=== PATIENT | female | born 1955 | race Caucasian/White ===

== ENCOUNTER 2021-12-04 10:34 | Day surgery (SDC) | payer MEDICARE, OTHER, SELFPAY ==
--- NOTE | 2021-12-04 07:44 | W.ANESPRE ---
General Info Date of Service Date Performed: 12/04/21 Height: 5 ft 4 in Weight: 568.805 kg Body Mass Index (BMI): 215.2 Surgical Procedure: Operation Date: 12/04/21 13:40 Proposed Procedure Side Surgeon p Cataract Extraction with IOL Implant Left Jonny Connor MD Meds Allergies and Home Medications Allergies Allergy/AdvReac Type Severity Reaction Status Date / Time No Known Allergies Allergy Unverified 12/01/21 12:13 Home Medication Medication Instructions Recorded albuterol sulfate 90 mcg/actuation 2 puff inhalation Q6H PRN 12/01/21 aerosol inhaler fluticasone propionate 115 2 inh inhalation PRN PRN 12/01/21 mcg-salmeterol 21 mcg/actuation HFA inhaler (Advair HFA) lisinopril 20 mg tablet 20 mg PO DAILY 12/01/21 lorazepam 0.5 mg tablet 0.5 mg PO HS 12/01/21 metoprolol succinate 50 mg 50 mg PO QAM 12/01/21 tablet,extended release 24 hr tramadol 50 mg tablet 50 mg PO TID PRN 12/01/21 Current Visit Medications: Current Medications Generic Name Dose Route Start Last Admin Trade Name Freq PRN Reason Stop Dose Admin Acetaminophen 1,000 mg 12/04/21 06:00 Acetaminophen 500 Mg Tab PO Q4H PRN PRN Miscellaneous Medication 0 ml 12/04/21 06:00 Prednisolone 1%, Moxifloxacin 0.5%, Nepafenac 0.1% 5ml Btl OS DIRECTED [facility] Miscellaneous Medication 0 ml 12/04/21 06:00 Tropicam./Phenyleph. (1/2.5%) 5 Ml Btl OS DIRECTED YEHUDA Tetracaine HCl 0 ml 12/04/21 06:00 Tetracaine 0.5% 4 Ml Btl OS DIRECTED YEHUDA PFSH Medical History Medical History (Updated 12/01/21 @ 12:12 by Miguel Cortez) Carcinoma in situ of rectum Chronic diarrhea of unknown origin Claustrophobia COPD (chronic obstructive pulmonary disease) Dislocation of shoulder Essential hypertension Fracture of right ankle Hypercholesteremia Hyponatremia Idiopathic osteoarthritis Malignant tumor of rectum Osteoarthritis of hip Port-A-Cath in place Last Chemo tx Fall 2020 Surgical History Surgical History H/O total hip arthroplasty Hx of colonoscopy Tobacco Smoking/Tobacco Use Status: Current every day Tobacco Type: cigarettes Alcohol Alcohol Intake: current Alcohol intake frequency: 0-2 drinks per day Alcohol type: wine Substance Use Substance use: Never Substance use type: does not use Vital Signs and Lab Results Lab Results Blood Type / Crossmatch: No Data to Display Complete Blood Count: No Data to Display Complete Metabolic Panel: No Data to Display Liver Function Panel: No Data to Display Coagulation Panel: No Data to Display Cardiac Panel: No Data to Display Arterial Blood Gas: No Data to Display Venous Blood Gas: No Data to Display Pancreas Panel: No Data to Display Thyroid Panel: No Data to Display Infectious Disease: No Data to Display Blood Cultures: No Data to Display Toxicology Panel: No Data to Display Anesthesia Assessment and Plan Anesthesia History Personal History: No History of Anesthesia Complications Family History: No Family History of Anesthesia Complications Exercise Tolerance Exercise Tolerance: Metabolic Equivalents>4 Pertinent Negatives Pertinent Negatives: No Symptoms of GERD, No Major Cardiovascular Symptoms or Complaints, No Major Pulmonary Symptoms or Complaints and No History of CVA/TIA Cardiac & Pulmonary Exam Cardiac Exam: Normal S1/S2 Heart Sounds Pulmonary Exam: Clear Bilateral Breath Sounds Implantable Cardiac Device Does patient have a Pacemaker or an ICD?: No Airway Exam Known Difficult Airway: No Mallampati Class: 2 Mouth Opening: Normal (> 3cm) Thyromental Distance: Greater than 3 cm Neck Range of Motion: Full ROM Neck Circumference: Normal Teeth Condition: Normal Dentition and Removable Dentures/Plates Upper ASA Classification ASA Score: ASA 3 Emergency Case?: No NPO Status NPO Status: NPO Clears >2 hours, Solids >8 hours Anesthesia Plan Resuscitation Status: Full Code Anesthesia Technique: MAC Anesthesia Airway Planned: Natural Airway Monitors Used: Standard Monitors Preoperative Comments:: Patient with COPD per chart. No care records at [facility], [facility] at this [facility].
[2021-12-04 10:55] VITALS: BP 183/62; PULSE 80; RESP 19; TEMP 36.3; O2SAT 97
[2021-12-04 11:09] VITALS: BMI 215.2
[2021-12-04] MEDS: Tropicam./Phenyleph. (1/2.5%) 5 ML BTL OS ×3 (11:17→11:38)
--- NOTE | 2021-12-04 11:47 | W.ANESPOSTOP ---
Postoperative Evaluation Date, Time and Location Date Performed: 12/04/21 Time Performed: 11:47 Patient Location: Day Surgery Unit Vital Signs Most Recent Imported Vital Signs: Most Recent Vital Signs Temp Pulse Resp BP Pulse Ox 36.3 C L 80 19 183/62 H 97 12/04/21 10:55 12/04/21 10:55 12/04/21 10:55 12/04/21 10:55 12/04/21 10:55 Most Recent Manually Entered Vital Signs: Adult Blood Pressure: 151/80 Heart Rate: 73 Respirations: 10 Oxygen Saturation (%): 98 Temperature (C): 36.3 C Pain Score (0-10 Scale): 0 Pain Score Most Recent Pain Score: Most Recent Pain Score Pain Level 6 12/04/21 10:55 Assessment Mental Status: Awake (Alert & Oriented to Patient Baseline) Airway and Respiratory Function: Patent airway with normal (patient baseline) respiratory exam Cardiovascular Function: Hemodynamically Stable Hydration Status: Adequately Hydrated Nausea & Vomiting: No Nausea or Vomiting Pain: Pt. Denies Any Pain Peripheral Nerve Block: Patient did not receive a nerve block
[2021-12-04 11:48] VITALS: BP 151/80; PULSE 73; RESP 10; TEMPC 36.3; O2SAT 98
[2021-12-04] MEDS: Tetracaine 0.5% 4 ML BTL OS (11:58)
[2021-12-04] MEDS: Povidone-Iodine Ophth 30 ML BTL (12:00)
[2021-12-04] MEDS: Lidocaine 2% Jelly 6 ML SYR (12:00)
[2021-12-04] MEDS: Duovisc Viscoelastic System EACH 1 EACH (12:04)
[2021-12-04] MEDS: Balanced Salt Soln.-PLUS 500 ML BAG (12:04)
[2021-12-04 12:23] VITALS: PULSE 71; RESP 16; TEMP 36.3; O2SAT 100
--- NOTE | 2021-12-04 12:24 | W.ANESPOSTOP ---
Postoperative Evaluation Date, Time and Location Date Performed: 12/04/21 Time Performed: 12:24 Patient Location: Day Surgery Unit Vital Signs Most Recent Imported Vital Signs: Most Recent Vital Signs Temp Pulse Resp BP Pulse Ox 36.3 C L 80 19 183/62 H 97 12/04/21 10:55 12/04/21 10:55 12/04/21 10:55 12/04/21 10:55 12/04/21 10:55 Most Recent Vital Signs Temp Pulse Resp BP Pulse Ox 36.3 C L 80 19 183/62 H 97 12/04/21 10:55 12/04/21 10:55 12/04/21 10:55 12/04/21 10:55 12/04/21 10:55 Most Recent Manually Entered Vital Signs: Adult Blood Pressure: 127/60 Heart Rate: 69 Respirations: 10 Oxygen Saturation (%): 98 Temperature (C): 36.5 C Pain Score (0-10 Scale): 0 Pain Score Most Recent Pain Score: Most Recent Pain Score Pain Level 6 12/04/21 10:55 Assessment Mental Status: Awake (Alert & Oriented to Patient Baseline) Airway and Respiratory Function: Patent airway with normal (patient baseline) respiratory exam Cardiovascular Function: Hemodynamically Stable Hydration Status: Adequately Hydrated Nausea & Vomiting: No Nausea or Vomiting Pain: Pt. Denies Any Pain Peripheral Nerve Block: Patient did not receive a nerve block
[2021-12-04 12:25] VITALS: BP 127/60; PULSE 69; RESP 10; TEMPC 36.5; O2SAT 98
--- NOTE | 2021-12-04 12:25 | W.PM.DSUDISC ---
Discharge Plan Disposition Patient Disposition: HOME Condition: Good Discharge Details Attending Provider: Jonny Connor Primary Care Provider: Ronnie Delaney Home Meds and New Rx's Prescriptions: No Action metoprolol succinate 50 mg Tablet Extended Release 24 Hr 50 mg PO QAM lisinopril 20 mg Tablet 20 mg PO DAILY tramadol 50 mg Tablet 50 mg PO TID PRN lorazepam 0.5 mg Tablet 0.5 mg PO HS albuterol sulfate 90 mcg/actuation Hfa Aerosol Inhaler 2 puff INHALATION Q6H PRN Advair HFA 115-21 mcg/actuation Hfa Aerosol Inhaler 2 inh INHALATION PRN PRN Discharge Instructions Stand Alone Forms: Post-op Topical Cataract, Nelson Monroe (DSU) Discharge Orders Discharge Orders: Discharge Order (Routine); Ordered 12/04/21 Ordered By: Jonny Connor DS: Diagnosis Discharge Diagnosis (1) Cortical cataract of left eye: Status: Resolved (2) Nuclear sclerotic cataract of left eye: Status: Resolved
--- NOTE | 2021-12-04 12:26 | W.PM.OP ---
Date of service: 12/04/21 Time of Service: 12:26 Operative Note Operative Note DATE OF PROCEDURE: 12/04/21 POST-OP DIAGNOSIS: same PROCEDURE: Cataract extraction using phacoemulsification with intraocular lens implant, left eye SURGEON: Jonny Connor ANESTHESIA TYPE: Local By Surgeon and MAC Refer to Anesthesia Record PATHOLOGY: none sent COMPLICATIONS: None Patient was transported to: same day Patient's condition: stable Implants: [employer] Jung / [employer] Tecnis [id number] Indications: Progressive decreased vision due to cataract, left eye Procedure Description: CATARACT SURGERY OPERATIVE REPORT PREOPERATIVE DIAGNOSIS: 1. Nuclear/cortical cataract, left eye POSTOPERATIVE DIAGNOSIS: Same OPERATION: 1. Cataract extraction using phacoemulsification with posterior chamber intraocular lens implant, left eye. IOL: IOL Bleacher Sulfite Pulp/Model: Jung & Jung / TANIA Tecnis [id number] IOL Power: + 23.0 diopters IOL Serial Number: [id number] Optic Diameter: 6.0 mm Haptic/Overall Diameter: 13.0 mm PHACO INFO: Kishore [employer]ion Vision System with OZil and Active Fluidics Cumulative Dispersed Energy (CDE): 8.84 seconds SURGEON: Jonny Connor MD, VANITA ANESTHESIA: Monitored A [facility] (MAC), with local sub-tenon's anesthetic infiltration COMPLICATIONS: None SPECIMENS: None INDICATIONS FOR PROCEDURE: The patient is a 66-year-old lady with history of diminished visual acuity in her left eye secondary to the development of nuclear and cortical cataract. The option of cataract surgery was offered to the patient and she wished to proceed. PROCEDURE: The correct surgical eye was identified and marked as the left eye and the pupil was dilated in the preoperative area using mydriatics and cycloplegics. The dilated pupil size was 7.0 mm. The patient elected to proceed without oral sedation. The patient was brought to the operating room where cardiopulmonary monitoring was instituted and surgical time-out was performed, confirming the correct operative eye and IOL power. Topical anesthesia was administered and ophthalmic povidone-iodine 5% was instilled into the conjunctival fornices. Lidocaine gel was applied to the cornea and the ace-ocular area was prepped with Betadine 10% solution and draped in the usual sterile fashion for intraocular surgery, including an aperture drape. A Tegaderm transparent film dressing was cut in half and used to cover the lashes and lid margins. Care was taken to sequester the lashes and lid margins under the Tegaderm dressing. A lid speculum was placed between the lids of the operative eye and the Kishore [employer] Revalia operating microscope was maneuvered into position. Reena scissors were then used to make a conjunctival buttonhole approximately 6mm posterior to the limbus in the inferonasal quadrant. Blunt dissection was carried out to expose bare sclera, and a blunt-tipped sub-tenon?s anesthesia cannula was introduced and passed posteriorly along the globe where non-preserved plain lidocaine was injected into posterior sub-Tenon?s space. A sideport knife was used to make a paracentesis port superiorly/superiortemporally. Intraocular phenylephrine/lidocaine was injected int the anterior chamber.. The anterior chamber was filled with viscoelastic. A keratome knife was used to construct a 2-plane near-clear corneal tunnel extending 2.0mm into clear cornea temporally. A flap was raised on the anterior capsule and capsulorhexis forceps were used to complete a continuous curvilinear capsulorhexis of 5.0 mm. Balanced salt solution was then used to perform cortical cleaving hydrodissection and nuclear hydrodelineation until the lens could be freely rotated within the capsular bag. The lens nucleus was then disassembled and removed within the capsular bag and iris plane using phacoemulsification. Residual cortical material was removed using the 45-degree angled silicone I/A tip with 0.3mm port. The posterior capsule was carefully polished to remove as much residual lens epithelial cells as safely possible. The capsular bag was then inflated and the anterior chamber deepened with viscoelastic. The lens implant described above was inserted into the capsular bag using the TANIA [place] Injector. A Kuglen hook was used to dial the IOL into position. Residual viscoelastic was then removed first from posterior to the IOL, then from the anterior chamber using the I/A handpiece. The lens implant was noted to center nicely within the capsular bag. The incisions were stromally hydrated, and the anterior chamber was reformed using BSS. Then 0.5cc of moxifloxacin 1.0mg/ml were injected into the capsular bag and anterior chamber. The incisions were checked with a Weck spear and found to be secure. Several drops of ophthalmic povidone-iodine 5% were then applied to the eye followed by two drops of Imprimis combination prednisolone/moxifloxacin/nepafenac solution. The drapes were removed and a clear plastic protective eye shield was placed over the eye. The patient was then returned to Same Day Surgery in stable condition.
[2021-12-04 12:55] VITALS: BP 130/84; PULSE 68; RESP 18; TEMP 36.1; O2SAT 98
== END 2021-12-04 13:06 | disposition home or self-care (01) ==
LOC: SUR 10:36
PROVIDERS: PCP Nurse Practitioner Family; Visit Provider Ophthalmology
PROC: (CPT 66984; principal; 2021-12-04 13:30)
DX: H25.12 Age-related nuclear cataract, left eye (principal); I10 Essential (primary) hypertension; E78.5 Hyperlipidemia, unspecified
CPT/HCPCS: 66984; V2632

== ENCOUNTER 2021-12-22 09:33 | Day surgery (SDC) | payer MEDICARE, OTHER, SELFPAY ==
[2021-12-22 10:03] VITALS: BP 192/66; PULSE 85; RESP 16; TEMP 36.6; O2SAT 98
[2021-12-22] MEDS: Tropicam./Phenyleph. (1/2.5%) 5 ML BTL OD ×3 (10:14→10:24)
--- NOTE | 2021-12-22 10:39 | W.ANESPRE ---
General Info Date of Service Date Performed: 12/22/21 Height: 5 ft 4 in Weight: 65.7 kg Body Mass Index (BMI): 24.8 Surgical Procedure: Operation Date: 12/22/21 12:40 Proposed Procedure Side Surgeon p Cataract Extraction with IOL Implant Right Jonny Connor MD Meds Allergies and Home Medications Allergies Allergy/AdvReac Type Severity Reaction Status Date / Time No Known Allergies Allergy Verified 12/22/21 09:58 Home Medication Medication Instructions Recorded albuterol sulfate 90 mcg/actuation 2 puff inhalation Q6H PRN 12/01/21 aerosol inhaler fluticasone propionate 115 2 inh inhalation BID 12/01/21 mcg-salmeterol 21 mcg/actuation HFA inhaler (Advair HFA) lisinopril 20 mg tablet 20 mg PO DAILY 12/01/21 lorazepam 0.5 mg tablet 0.5 mg PO HS 12/01/21 metoprolol succinate 50 mg 50 mg PO QAM 12/01/21 tablet,extended release 24 hr tramadol 50 mg tablet 50 mg PO TID PRN 12/01/21 acetaminophen 325 mg capsule 650 mg PO ONCE PRN 12/22/21 (Tylenol) Current Visit Medications: Current Medications Generic Name Dose Route Start Last Admin Trade Name Freq PRN Reason Stop Dose Admin Acetaminophen 1,000 mg 12/22/21 06:00 Acetaminophen 500 Mg Tab PO Q4H PRN PRN Miscellaneous Medication 0 ml 12/22/21 06:00 Prednisolone 1%, Moxifloxacin 0.5%, Nepafenac 0.1% 5ml Btl OD DIRECTED YEHUDA Miscellaneous Medication 0 ml 12/22/21 06:00 12/22/21 10:24 Tropicam./Phenyleph. (1/2.5%) 5 Ml Btl OD 1 drp DIRECTED YEHUDA Administration Tetracaine HCl 0 ml 12/22/21 06:00 Tetracaine 0.5% 4 Ml Btl OD DIRECTED YEHUDA PFSH Active Problems Active Problems: Problem Status Onset Code Nuclear sclerotic cataract of left eye H25.12 Cortical cataract of left eye H26.9 Medical History Medical History Carcinoma in situ of rectum Chronic diarrhea of unknown origin Claustrophobia 12/04/21 pt reports this is not an issue COPD (chronic obstructive pulmonary disease) Dislocation of shoulder Essential hypertension Fracture of right ankle Hypercholesteremia Hyponatremia Idiopathic osteoarthritis Malignant tumor of rectum Osteoarthritis of hip Port-A-Cath in place Last Chemo tx Fall 2020 Surgical History Surgical History H/O total hip arthroplasty Hx of colonoscopy Tobacco Smoking/Tobacco Use Status: Current every day Tobacco Type: cigarettes Smoking cigarettes per day: 5 Years smoked: 51 Alcohol Alcohol Intake: current Alcohol intake frequency: 0-2 drinks per day Alcohol type: wine Substance Use Substance use: Never Substance use type: does not use Vital Signs and Lab Results Vital Signs Most Recent Vital Signs in EMR: Most Recent Vital Signs Temp Pulse Resp BP Pulse Ox 36.6 C 85 16 192/66 H 98 12/22/21 10:03 12/22/21 10:03 12/22/21 10:03 12/22/21 10:03 12/22/21 10:03 Lab Results Blood Type / Crossmatch: No Data to Display Complete Blood Count: No Data to Display Complete Metabolic Panel: No Data to Display Liver Function Panel: No Data to Display Coagulation Panel: No Data to Display Cardiac Panel: No Data to Display Arterial Blood Gas: No Data to Display Venous Blood Gas: No Data to Display Pancreas Panel: No Data to Display Thyroid Panel: No Data to Display Infectious Disease: No Data to Display Blood Cultures: No Data to Display Toxicology Panel: No Data to Display Anesthesia Assessment and Plan Anesthesia History Personal History: No History of Anesthesia Complications Family History: No Family History of Anesthesia Complications Exercise Tolerance Exercise Tolerance: Metabolic Equivalents>4 Pertinent Negatives Pertinent Negatives: No Symptoms of GERD, No Major Cardiovascular Symptoms or Complaints and No Major Pulmonary Symptoms or Complaints Cardiac & Pulmonary Exam Cardiac Exam: Normal S1/S2 Heart Sounds Pulmonary Exam: Clear Bilateral Breath Sounds Implantable Cardiac Device Does patient have a Pacemaker or an ICD?: No Airway Exam Known Difficult Airway: No Mallampati Class: 2 Mouth Opening: Normal (> 3cm) Thyromental Distance: Greater than 3 cm Neck Range of Motion: Full ROM Neck Circumference: Normal Teeth Condition: Normal Dentition and Removable Dentures/Plates Upper ASA Classification ASA Score: ASA 3 Emergency Case?: No NPO Status NPO Status: NPO Clears >2 hours, Solids >8 hours Anesthesia Plan Resuscitation Status: Full Code Anesthesia Technique: MAC Anesthesia Airway Planned: Natural Airway Monitors Used: Standard Monitors
[2021-12-22 11:02] VITALS: BMI 24.8
[2021-12-22] MEDS: Lidocaine 2% Jelly 6 ML SYR (11:06)
[2021-12-22] MEDS: Tetracaine 0.5% 4 ML BTL OD (11:06)
[2021-12-22] MEDS: Povidone-Iodine Ophth 30 ML BTL (11:08)
[2021-12-22] MEDS: Balanced Salt Soln.-PLUS 500 ML BAG (11:09)
[2021-12-22 11:29] VITALS: BP 133/55; PULSE 77; RESP 16; TEMP 36.3; O2SAT 97
--- NOTE | 2021-12-22 11:30 | W.PM.OP ---
Date of service: 12/22/21 Time of Service: 11:30 Operative Note Operative Note DATE OF PROCEDURE: 12/22/21 PRE-OP DIAGNOSIS: Nuclear/cortical cataract, right eye POST-OP DIAGNOSIS: same PROCEDURE: Cataract extraction using phacoemulsification with intraocular lens implant, right eye SURGEON: Jonny Connor ANESTHESIA TYPE: Local By Surgeon and MAC Refer to Anesthesia Record ESTIMATED BLOOD LOSS: 0 PATHOLOGY: none sent COMPLICATIONS: None Patient was transported to: same day Patient's condition: stable Implants: Jung & Jung/TANIA Tecnis [id number] Indications: Progressive visual loss due to cataract, right eye Procedure Description: CATARACT SURGERY OPERATIVE REPORT PREOPERATIVE DIAGNOSIS: 1. Nuclear/cortical cataract, right eye POSTOPERATIVE DIAGNOSIS: Same OPERATION: 1. Cataract extraction using phacoemulsification with posterior chamber intraocular lens implant, right eye. IOL: IOL Drafter Chief Design/Model: Jung & Jung / TANIA Tecnis [id number] IOL Power: + 23.0 diopters IOL Serial Number: [id number] Optic Diameter: 6.0mm Haptic/Overall Diameter: 13.0mm PHACO INFO: Kishore [employer] Vision System with OZil and Active Fluidics Cumulative Dispersed Energy (CDE): 11.37 seconds SURGEON: Jonny Connor MD, VANITA ANESTHESIA: Monitored Anesthesia Care (MAC), with local sub-tenon's anesthetic infiltration COMPLICATIONS: None SPECIMENS: None INDICATIONS FOR PROCEDURE: The patient is a 66-year-old lady with history of diminished visual acuity in both eyes secondary to development of bilateral cataract. She has already undergone cataract surgery in the left eye and is doing well postoperatively. She now presents for cataract surgery in the right eye. PROCEDURE: The correct surgical eye was identified and marked as the right eye and the pupil was dilated in the preoperative area using mydriatics and cycloplegics. The dilated pupil size was 7.0 mm. Oral sedation was administered in the form of an Imprimis MKO Melt (midazolam 3mg/ketamine 25mg/ondansetron 2mg). The patient was brought to the operating room where cardiopulmonary monitoring was instituted and surgical time-out was performed, confirming the correct operative eye and IOL power. Topical anesthesia was administered and ophthalmic povidone-iodine 5% was instilled into the conjunctival fornices. Lidocaine gel was applied to the cornea and the ace-ocular area was prepped with Betadine 10% solution and draped in the usual sterile fashion for intraocular surgery, including an aperture drape. A Tegaderm transparent film dressing was cut in half and used to cover the lashes and lid margins. Care was taken to sequester the lashes and lid margins under the Tegaderm dressing. A lid speculum was placed between the lids of the operative eye and the Kishore Lux[employer] Revalia operating microscope was maneuvered into position. Reena scissors were then used to make a conjunctival buttonhole approximately 6mm posterior to the limbus in the inferonasal quadrant. Blunt dissection was carried out to expose bare sclera, and a blunt-tipped sub-tenon?s anesthesia cannula was introduced and passed posteriorly along the globe where non-preserved plain lidocaine was injected into posterior sub-Tenon?s space. A sideport knife was used to make a paracentesis port inferotemporally. Intraocular phenylephrine/lidocaine was injected into the anterior chamber. The anterior chamber was filled with viscoelastic. A keratome knife was used to construct a 2-plane near-clear corneal tunnel extending 2.0mm into clear cornea superiortemporally. A flap was raised on the anterior capsule and capsulorhexis forceps were used to complete a continuous curvilinear capsulorhexis of 5.5 mm. Balanced salt solution was then used to perform cortical cleaving hydrodissection and nuclear hydrodelineation until the lens could be freely rotated within the capsular bag. The lens nucleus was then disassembled and removed within the capsular bag and iris plane using phacoemulsification. Residual cortical material was removed using the I/A handpiece. The posterior capsule was carefully polished to remove as much residual lens epithelial cells as safely possible. The capsular bag was then inflated and the anterior chamber deepened with viscoelastic. The lens implant described above was inserted into the capsular bag using the TANIA [place] Injector. A Kuglen hook was used to dial the IOL into position. Residual viscoelastic was then removed first from posterior to the IOL, then from the anterior chamber using the I/A handpiece. The lens implant was noted to center nicely within the capsular bag. The incisions were stromally hydrated, and the anterior chamber was reformed using BSS. Then 0.5cc of moxifloxacin 1.0mg/ml were injected into the capsular bag and anterior chamber. The incisions were checked with a Weck spear and found to be secure. Several drops of ophthalmic povidone-iodine 5% were then applied to the eye followed by two drops of Imprimis combination prednisolone/moxifloxacin/nepafenac solution. The drapes were removed and a clear plastic protective eye shield was placed over the eye. The patient was then returned to Same Day Surgery in stable condition.
--- NOTE | 2021-12-22 11:34 | W.PM.DSUDISC ---
Discharge Plan Disposition Patient Disposition: HOME Condition: Good Discharge Details Attending Provider: Jonny Connor Primary Care Provider: Ronnie Delaney Home Meds and New Rx's Prescriptions: No Action acetaminophen [Tylenol] 325 mg Capsule 650 mg PO ONCE PRN metoprolol succinate 50 mg Tablet Extended Release 24 Hr 50 mg PO QAM lisinopril 20 mg Tablet 20 mg PO DAILY tramadol 50 mg Tablet 50 mg PO TID PRN lorazepam 0.5 mg Tablet 0.5 mg PO HS albuterol sulfate 90 mcg/actuation Hfa Aerosol Inhaler 2 puff INHALATION Q6H PRN Advair HFA 115-21 mcg/actuation Hfa Aerosol Inhaler 2 inh INHALATION BID Discharge Instructions Stand Alone Forms: Post-op Topical Cataract, Nelson Monroe (DSU) Discharge Orders Discharge Orders: Discharge Order (Routine); Ordered 12/22/21 Ordered By: Jonny Connor DS: Diagnosis Discharge Diagnosis (1) Cortical cataract of right eye: Status: Resolved (2) Nuclear sclerotic cataract of right eye: Status: Resolved
--- NOTE | 2021-12-22 11:45 | W.ANESPOSTOP ---
Postoperative Evaluation Date, Time and Location Date Performed: 12/22/21 Time Performed: 11:31 Patient Location: Day Surgery Unit Vital Signs Most Recent Imported Vital Signs: Most Recent Vital Signs Temp Pulse Resp BP Pulse Ox 36.3 C L 77 16 133/55 L 97 12/22/21 11:29 12/22/21 11:29 12/22/21 11:29 12/22/21 11:29 12/22/21 11:29 Pain Score Most Recent Pain Score: Most Recent Pain Score Pain Level 0 12/22/21 11:29 Assessment Mental Status: Awake (Alert & Oriented to Patient Baseline) Airway and Respiratory Function: Patent airway with normal (patient baseline) respiratory exam Cardiovascular Function: Hemodynamically Stable Hydration Status: Adequately Hydrated Nausea & Vomiting: No Nausea or Vomiting Pain: Pt. Denies Any Pain Peripheral Nerve Block: Patient did not receive a nerve block
[2021-12-22 11:51] VITALS: BP 129/65; PULSE 77; RESP 16; TEMP 36.3; O2SAT 97
== END 2021-12-22 12:03 | disposition home or self-care (01) ==
LOC: SUR 09:33
PROVIDERS: PCP Nurse Practitioner Family; Visit Provider Ophthalmology
PROC: (CPT 66984; principal; 2021-12-22 12:30)
DX: H25.11 Age-related nuclear cataract, right eye (principal); J44.9 Chronic obstructive pulmonary disease, unspecified; E78.00 Pure hypercholesterolemia, unspecified; I10 Essential (primary) hypertension
CPT/HCPCS: 66984; V2632